=== PATIENT | female | born 1965 | race Caucasian/White ===

== ENCOUNTER 2016-10-24 16:30 | Emergency (ER) | payer MEDICAID ==
[2015-05-29 16:48] VITALS: BMI 25.1
[~2016-10-24 16:30] MED LIST: CYCLOBENZAPRINE10 MG PO; HYDROCODONE-APA1 TAB PO; MIRALAX17 GM PO; MS CONTIN30 MG PO; MULTIPLE VITAMI1 TA1 PO; NEURONTIN 300300 MG PO; NEURONTIN600 MG; PERCOCET 10/3251 TA1 PO; SOMA350 MG PO; TRAZODONE HCL300 MG; TUMS500 MG PO; VALIUM10 MG PO
== END 2016-10-24 21:25 | disposition home or self-care (01) ==
LOC: D.ER 16:30
DX: S30.1XXA Contusion of abdominal wall, initial encounter (principal); W01.0XXA Fall on same level from slipping, tripping and stumbling without subsequent striking against object, initial encounter; Y93.01 Activity, walking, marching and hiking; Y92.89 Other specified places as the place of occurrence of the external cause

== ENCOUNTER → 2018-08-23 11:36 | Outpatient (CLI) | payer MEDICAID ==
[2015-05-29 16:48] VITALS: BMI 25.1
== END | disposition home or self-care (01) ==
LOC: D.LAB 11:36
DX: M25.561 Pain in right knee (principal); M54.6 Pain in thoracic spine; M25.571 Pain in right ankle and joints of right foot

== ENCOUNTER 2019-03-14 13:53 | Emergency (ER) | payer MEDICAID ==
[~2019-03-14] VITALS: Ht 162.6 cm; Wt 68.9 kg
[2019-03-14 14:15] VITALS: Ht 162.6 cm; Wt 68.9 kg
[2019-03-14] MEDS ORDERED: ZOFRAN ODT4 MG/UDTAB PO (15:25)
[2019-03-14] MEDS ORDERED: VOLTAREN75 MG PO (15:25)
[2019-03-14 16:54] VITALS: BP 134/88
== END 2019-03-14 16:55 | disposition home or self-care (01) ==
LOC: D.ER 13:53
DX: S59.911A Unspecified injury of right forearm, initial encounter (principal); W18.30XA Fall on same level, unspecified, initial encounter; Y93.89 Activity, other specified; Y92.89 Other specified places as the place of occurrence of the external cause; M25.521 Pain in right elbow

== ENCOUNTER 2019-06-08 15:57 | Emergency (ER) | payer MEDICAID ==
[~2019-06-08] VITALS: Ht 162.6 cm; Wt 72.7 kg
[~2019-06-08 15:57] MED LIST changes: +VOLTAREN75 MG PO; +ZOFRAN ODT4 MG/UDTAB PO
[2019-06-08 16:02] VITALS: Ht 162.6 cm; Wt 72.7 kg
[2019-06-08 17:14] LABS: BASOPHILS 0.2 % (0-2); EOSINOPHILS 0.2 % (0-7); HEMATOCRIT 44.4 % (36.0-48.0); HEMOGLOBIN 15.1 g/dL (12-16); IMMATURE GRANULOCYTES 0.2 % (0-5); MCH 36.4 pg (26.0-34.0); MEAN PLATELET VOLUME 10.9 fL (7.4-10.4); MONOCYTES 11.1 % (2-11); NEUTROPHILS 73.3 % (40-80); PLATELET COUNT 333 10x3/uL (130-400); RBC 4.15 10x6/uL (4.00-5.40); RDW 12.7 % (11.5-14.5); WBC 8.3 10x3/uL (4.8-10.8)
[2019-06-08 17:20] LABS: CALC OSMOLALITY 276 mosm/kg (275-300); CALCIUM 8.4 mg/dL (8.5-10.1); CARBON DIOXIDE 25.8 mmol/L (21.0-32.0); CHLORIDE - SERUM 103 mmol/L (98-107); CREATININE - SERUM 0.6 mg/dL (0.6-1.3); GLUCOSE 88 mg/dL (74-106); POTASSIUM - SERUM 3.6 mmol/L (3.5-5.1); SODIUM 140 mmol/L (136-145); UREA NITROGEN 9 mg/dL (7-18); eGFR NON AFRICAN AMERICAN > 90 mL/min (90-120)
[2019-06-08] MEDS ORDERED: CYCLOBENZAPRINE10 MG PO (17:21)
[2019-06-08] MEDS ORDERED: ACETAMINOPHEN500 M1 PO (17:21)
[2019-06-08] MEDS ORDERED: MEDROL DOSE PACK4 MG PO (17:21)
[2019-06-08 17:22] LABS: APTT 26.6 SECONDS (22.8-39.4); INR 0.97 (0.85-1.17); PROTIME 12.4 SECONDS (11.6-15.0)
[2019-06-08 17:25] LABS: APPEARANCE CLEAR (CLEAR); COLOR STRAW (YELLOW); GLUCOSE NEGATIVE (NEGATIVE); NITRITE NEGATIVE (NEGATIVE); PROTEIN NEGATIVE (NEGATIVE); SPECIFIC GRAVITY 1.005 (1.005-1.020)
[2019-06-08 17:26] LABS: ALBUMIN 3.6 g/dL (3.4-5.0); ALKALINE PHOSPHATASE 107 U/L (46-116); ALT (SGPT) 21 U/L (10-68); PROTEIN - SERUM 6.8 g/dL (6.4-8.2)
[2019-06-08 17:26] LABS: BILIRUBIN NEGATIVE (NEGATIVE); KETONE SMALL mg/dL (NEGATIVE); UROBILINOGEN NORMAL (NORMAL)
[2019-06-08 17:32] LABS: UDS - AMPHET NEGATIVE QUAL (NEGATIVE); UDS - BARB NEGATIVE QUAL (NEGATIVE); UDS - BENZO NEGATIVE QUAL (NEGATIVE); UDS - COCAINE NEGATIVE QUAL (NEGATIVE); UDS - OPIATE NEGATIVE QUAL (NEGATIVE); UDS - PCP NEGATIVE QUAL (NEGATIVE); UDS - THC NEGATIVE QUAL (NEGATIVE)
[2019-06-08 18:49] VITALS: BP 162/90
== END 2019-06-08 18:42 | disposition home or self-care (01) ==
LOC: D.ER 15:57
PROVIDERS: Family Medicine
DX: M54.9 Dorsalgia, unspecified (principal); M79.18 Myalgia, other site; M54.2 Cervicalgia; V89.2XXA Person injured in unspecified motor-vehicle accident, traffic, initial encounter; Y93.9 Activity, unspecified; Y92.9 Unspecified place or not applicable

== ENCOUNTER 2020-02-23 23:03 | Emergency (ER) | payer MEDICAID ==
[~2020-02-23] VITALS: Ht 162.6 cm; Wt 68.2 kg
[~2020-02-23 23:03] MED LIST changes: +ACETAMINOPHEN500 M1 PO; +MEDROL DOSE PACK4 MG PO
[2020-02-23 23:10] VITALS: BP 132/77; Ht 162.6 cm; Wt 68.2 kg
== END 2020-02-24 01:05 | disposition home or self-care (01) ==
LOC: D.ER 23:03
DX: S02.2XXA Fracture of nasal bones, initial encounter for closed fracture (principal); Y09 Assault by unspecified means; R51 Headache; R04.0 Epistaxis; M25.552 Pain in left hip